=== PATIENT | male | born 1955 | race Asian ===

== ENCOUNTER 2020-09-26 14:25 | Outpatient (CLI) | payer MEDICARE, OTHER ==
[2020-09-26 14:43] LABS: BASOPHILS % (AUTO) 0.4 %; EOSINOPHILS # (AUTO) 0.2 10^3/uL (0.0-0.7); EOSINOPHILS % (AUTO) 3.7 %; HGB - HEMOGLOBIN 14.8 g/dL (14.0-18.0); LYMPHOCYTES # (AUTO) 2.6 10^3/uL (1.5-3.5); LYMPHOCYTES % (AUTO) 47.6 %; MEAN CORPUSCULAR HEMOGLOBIN 31.8 pg (27.0-31.0); MEAN CORPUSCULAR HGB CONC 35.2 g/dL (32.0-36.0); MEAN CORPUSCULAR VOLUME 90.1 fL (80.0-94.0); MEAN PLATELET VOLUME 8.8 fL (7.4-11.4); MONOCYTES # (AUTO) 0.4 10^3/uL (0.0-1.0); MONOCYTES % (AUTO) 8.1 %; NEUTROPHILS # (AUTO) 2.2 10^3/uL (1.5-6.6); PLT - PLATELET COUNT 161 10^3/uL (130-450); RED BLOOD COUNT 4.66 10^6/uL (4.70-6.10); RED CELL DISTRIBUTION WIDTH 11.9 % (12.0-15.0); WHITE BLOOD COUNT 5.4 x10^3/uL (4.8-10.8)
== END 2020-09-26 14:26 | disposition home or self-care (01) ==
LOC: LAB 14:25
PROVIDERS: ATTEND Family Medicine
DX: D69.6 Thrombocytopenia, unspecified (principal)
CPT/HCPCS: 36415; 85025

== ENCOUNTER 2021-04-16 07:12 | Day surgery (SDC) | payer MEDICARE, OTHER ==
[2021-04-16] MEDS ORDERED: LACTATED RINGERS 1,000 ML IV ONE ×2 (07:27→08:49)
[2021-04-16] MEDS ORDERED: BENZOCAINE/TETRACAINE/BUTAMBEN 20 GM ONE (08:03)
[2021-04-16] MEDS ORDERED: LIDO GARGLE 30 ML BOTTLE ONE (08:03)
[2021-04-16] MEDS ORDERED: MIDAZOLAM 2 MG/2 ML VIAL ONE (08:06)
[2021-04-16] MEDS ORDERED: fentaNYL 250 MCG/5 ML VIAL ONE (08:06)
[2021-04-16] MEDS ORDERED: LIDO GARGLE 30 ML BOTTLE PO ONE (08:14)
[2021-04-16] MEDS ORDERED: BENZOCAINE/TETRACAINE/BUTAMBEN 20 GM TOP ONE (08:15)
[2021-04-16 09:42] VITALS: BP 130/80
== END 2021-04-16 07:13 | disposition home or self-care (01) ==
LOC: SDS 07:12
PROVIDERS: ATTEND Surgery
PROC: 0DB28ZX Excision of Middle Esophagus, Via Natural or Artificial Opening Endoscopic, Diagnostic (ICD-10-PCS; 2021-04-16)
PROC: 0DB48ZX Excision of Esophagogastric Junction, Via Natural or Artificial Opening Endoscopic, Diagnostic (ICD-10-PCS; 2021-04-16)
PROC: 0DB98ZX Excision of Duodenum, Via Natural or Artificial Opening Endoscopic, Diagnostic (ICD-10-PCS; principal; 2021-04-16 08:15)
PROC: 0DB78ZX Excision of Stomach, Pylorus, Via Natural or Artificial Opening Endoscopic, Diagnostic (ICD-10-PCS; 2021-04-16 08:15)
DX: Z09 Encounter for follow-up examination after completed treatment for conditions other than malignant neoplasm (principal); Z86.010 Personal history of colon polyps; Z87.19 Personal history of other diseases of the digestive system; K57.30 Diverticulosis of large intestine without perforation or abscess without bleeding; K29.70 Gastritis, unspecified, without bleeding; K21.00 Gastro-esophageal reflux disease with esophagitis, without bleeding; E78.5 Hyperlipidemia, unspecified; Z79.82 Long term (current) use of aspirin; Z79.899 Other long term (current) drug therapy
CPT/HCPCS: 43239; 45378; A9270; J3010; J7120

== ENCOUNTER 2024-03-27 10:37 | Outpatient (CLI) | payer MEDICARE, OTHER ==
--- NOTE | 2024-03-27 12:49 | SLEEP CARE CONSULTATION ---
Information from patient questionnaire entered by Nico Hinson. I have reviewed and concur with the information entered by Nico Hinson. This document represents the service I personally performed and the decisions made by me, Thalia Adrian MD, [facility]. History of Present Illness Service Date and Time: 03/27/2024 1037 Reason for Visit: New patient Chief Complaint: reports: Other (DIFFICULTY FALLING ASLEEP) Date of Onset: 1.5YRS Usual bedtime: 2330 Time it takes to fall asleep: 30MIN WITH AMBIAN 5MG Snores at night: Yes Observed to quit breathing while asleep: No Sleeps alone due to snoring: No Number of times waking at night: 2 Reasons for waking at night: reports: Bathroom Toss, Turn, or Twitch while sleeping: No Recalls having dreams: Yes Usually gets out of bed at: [id number] Feels refreshed in the morning: Yes Morning headache: No Sleepy or fatigued during the day: No Ever fallen asleep while driving: No Takes day naps: No Dreams during day naps: No Prior sleep studies: No Additional HPI information: I had the pleasure of seeing Mr. Middleton today regarding the possibility of him having a sleep disorder. As you know, he is a 68-year-old gentleman who complains of difficulty falling asleep. For the past year and a half. The patient tells me that he normally goes to bed around 11:30 pm, and it takes him approximately 30 minutes to fall asleep with zolpidem 5 mg. He has been told that he snores loudly and irregularly at night. He has never been observed to stop breathing in his sleep. However, his sleeps in a separate bedroom. He can recall waking up on the average of 2 times during the night. Most of the time he wakes up because of having to use the bathroom. He has awakened occasionally because of his own snoring, choking, and having to gasp for air. There is not a lot of tossing and turning in his sleep. No somniloquy (sleep talking) or somnambulism (sleep walking). Generally, he can recall having dreams. In the morning he usually gets up out of the bed around 8 - 9 a.m. not feeling refreshed nor rested. He usually does not have a morning headache. During the day he complains of feeling fatigued but not particularly sleep. His score on [place] Sleepiness Scale is 4 out of 24. He never has fallen asleep while driving nor has had any accident due to sleepiness. He usually does not take naps during the day. Upon falling asleep during the day he denies having vivid dreams. He has never had sleep paralysis, experienced cataplexy or symptoms of restless leg syndrome. He denies having impaired concentration during the day. - Parasomnia Symptoms Ever been unable to move upon waking from sleep: No Walks in sleep: No Talks in sleep: No Ever acted out dreams in sleep: No Ever felt weak in the knees when startled or emotional: No Bothered by creepy, crawly, restless sensations in legs: No Problems with memory or concentration: No Subjective Initial [place] Sleepiness Scale score: 4 (03/13/24) Past Medical History Past Medical History: reports: Hypertension Social History The patient's occupation is a [employer]. Patient is and lives in [place]. Have you smoked in the past 12 months: No Alcohol use: No Caffeine use: Yes Caffeine amount and frequency: TEA DAILY Allergies and Home Medications Known drug allergies: Yes (PENICILLIN) Drug allergies reviewed: Yes Home medication list reviewed: Yes Allergy and home medication list: Allergies Penicillins Allergy (Verified 03/23/24 09:02) Rash Review of Systems Cardiovascular: reports: high blood pressure Respiratory: denies: shortness of breath, wheeze, sputum production, chronic cough, other Gastrointestinal: denies: heartburn, difficulty swallowing, nausea, vomitting, diarrhea, abdominal pain, other Urinary: denies: incontinence, frequency, urgency, impotence, other Neurological: denies: headaches, seizure, head trauma, disorientation, speech dysfunction, gait or balance problems, fainting or unconsciousness, other Psychiatric: denies: Attention Deficit Hyperactivity, anxiety, depression, mood disorder, claustrophobia, other Ear/Nose/Throat: reports: sinus problems Endocrine: denies: thyroid disease, history of goiter, sluggishness, too hot or cold, excessive thirst, increased appetite, increased urination, unexplained weakness, other Musculoskeletal: denies: joint pain, neck pain, back pain, joint swelling, muscle pain or cramping, mobility problems, other Immunologic: denies: sneezing, rash, itching, allergies to food or environment, other Physical Exam Vital signs obtained and entered by: NICO Llanos MA Blood Pressure: 135/76 (RGHT ARM) Cuff size: regular Heart Rate: 61 O2 Saturation: 99 Height: 5 ft 8.75 in Weight: 194 lb 9.6 oz Body Mass Index: 28.9 BMI Classification: Overweight Neck circumference: 16 Mood/affect: normal HEENT: No craniofacial malformation Nostrils: patent to airflow Turbinates: normal Septum: midline Mouth and throat: narrow oropharynx Soft palate: long Hard palate: normal Uvula: normal Uvula visualization: 50% Mallampati Class II Tongue: normal in size Tonsils: small Chin and jaw: Retrognathia Neck: normal w/o lymphadenopathy or thyromegaly Heart: regular rate and rhythm Lungs: clear bilaterally Extremities: no edema or clubbing Neurologic: intact Impression and Plan IMPRESSION: 1. Obstructive Sleep Apnea-Hypopnea Syndrome, as suggested by history of loud and irregular snoring, nocturnal choking, unrefreshed sleep, and history of hypertension. Narrow oropharynx and obesity are common predisposing factors for obstructive sleep apnea-hypopnea syndrome. I recommend proceeding to polysomnography to confirm the diagnosis and to assess severity. I informed the patient of what the sleep studies involve and after some discussion, he agreed to proceed. 2. Insomnia, due to excessive time spent in bed of 9.5 hours a night. The patient was advised to limit time spent in bed to 7 hours. If he gets up at 9 am, he should delay his bedtime to 2 am. He may continue to take zolpidem 5 mg for now. Plan: 1. Schedule and return in 1 to 2 weeks after the study to discuss result and initiate therapy. 2. Maintain a regular wake up time and spend no more than 7 hours in bed at night. Avoid naps. 3. Avoid alcohol, sedatives and muscle relaxants around bedtime. 4. Attempt to lose some weight. Follow up with Sleep Care in: 1-2 months Visit Type: In Office Time Spent with Patient (minutes): 15 Provider Statement: I spent 100% of the Face to Face Visit with the patient with greater than 50% spent counseling the patient and coordination of care.
[2024-03-27 12:55] VITALS: BP 135/76; O2SAT 99
== END 2024-03-27 10:38 | disposition home or self-care (01) ==
LOC: SC 10:37
PROVIDERS: ATTEND Internal Medicine Pulmonary Disease
DX: G47.8 Other sleep disorders (principal); R06.83 Snoring; Z86.79 Personal history of other diseases of the circulatory system; G47.00 Insomnia, unspecified; E66.3 Overweight; Z68.28 Body mass index [BMI] 28.0-28.9, adult
CPT/HCPCS: 99202; G0463; 99212

== ENCOUNTER 2024-03-28 19:43 | Outpatient (CLI) | payer MEDICARE, OTHER | END 2024-03-28 19:44 | disposition home or self-care (01) | LOC: SC 19:43 | PROVIDERS: ATTEND Internal Medicine Pulmonary Disease | DX: G47.33 Obstructive sleep apnea (adult) (pediatric) (principal); G47.61 Periodic limb movement disorder; I10 Essential (primary) hypertension; E66.3 Overweight; Z68.28 Body mass index [BMI] 28.0-28.9, adult | CPT/HCPCS: 95810 ==

== ENCOUNTER 2024-04-24 13:59 | Outpatient (CLI) | payer MEDICARE, OTHER ==
--- NOTE | 2024-04-24 19:37 | SLEEP CARE CONSULTATION ---
Information from patient questionnaire entered by Nico Hinson. I have reviewed and concur with the information entered by Nico Hinson. This document represents the service I personally performed and the decisions made by me, Thalia Adrian MD, [facility]. History of Present Illness Service Date and Time: 04/24/2024 4178 Current [place] Sleepiness Scale score: 8 (04/24/24) Additional HPI information: Mr. Middleton returned for follow up of the sleep study he had on 03/28/24. The polysomnography showed that the patient had reduced sleep efficiency due to frequent awakenings throughout the night. The sleep architecture was abnormal for sleep fragmentation and lack of slow wave sleep (N3). Respiratory monitoring showed severe obstructive sleep apnea-hypopnea (AHI = 49.6) associated with frequent arousals, oxyhemoglobin desaturation and moderate hypoxia (nafisa oxygen saturation of 74%). The respiratory events occurred more frequently during supine sleep (supine AHI = 67.0; non-supine = 25.71). Snore was moderate to loud in intensity. There was moderate periodic leg movement of sleep, not contributing to the sleep fragmentation. Cardiac rhythm was normal sinus rhythm without significant arrhythmia. No abnormal behavior (parasomnia) observed during the night. The patient was informed of these findings. I explained to him the pathophysiology behind obstructive sleep apnea. We then spent quite a bit of time discussing different treatment options. For mild obstructive sleep apnea, surgery and oral appliance are alternatives to nasal CPAP therapy but in moderate or severe cases, nasal CPAP is the most effective and reliable treatment. Weight loss in an obese individual is strongly recommended. After some discussion, he opted to go with the nasal CPAP therapy. I explained to him how CPAP machine works and what to expect when using the machine. He is encouraged to use CPAP every night especially in the first 2 to 3 nights in order to get used to it. He should call his CPAP supplier or me to discuss any mechanical problem that may occur. If he snores or feels like he is not getting enough air from the machine, he should notify me and I will increase the pressure. Sleep Study - Results Type of Sleep Study: Polysomnography (COMPLETED 03/28/24) Allergies and Home Medications Drug allergies reviewed: Yes Home medication list reviewed: Yes Allergy and home medication list: Allergies Penicillins Allergy (Verified 04/24/24 14:00) Rash Review of Systems Review of systems same as previous: Yes (NO CHANGE) Physical Exam Vital signs obtained and entered by: NICO Llanos MA Blood Pressure: 132/79 (LEFT ARM) Cuff size: regular Heart Rate: 70 O2 Saturation: 98 Height: 5 ft 10 in Weight: 200 lb Body Mass Index: 28.7 BMI Classification: Overweight Impression and Plan IMPRESSION: 1. Obstructive Sleep Apnea-Hypopnea Syndrome, severe, associated with moderate hypoxemia and sleep fragmentation. Obviously this is the cause of the patients symptoms of frequent awakenings, unrefreshed sleep, and excessive daytime sleepiness. As mentioned above, the patient will be started on an auto CPAP set between 5 and 15 cmH2O. A manual CPAP/BiPAP titration study will be ordered. PLAN: 1. Prescription made for an autoCPAP, heated humidifier, and related supplies through [facility] in [facility]. 2. Schedule a manual CPAP/BiPAP titration study. 3. Refill zolpidem 5 mg. 4. Return for a follow up after the titration study. Prescriptions: Auto CPAP Follow up with Sleep Care in: 1-2 months Plan: manual CPAP titration Visit Type: In Office Time Spent with Patient (minutes): 25 Provider Statement: I spent 100% of the Face to Face Visit with the patient with greater than 50% spent counseling the patient and coordination of care.
[2024-04-24 19:46] VITALS: BP 132/79; O2SAT 98
== END 2024-04-24 14:00 | disposition home or self-care (01) ==
LOC: SC 13:59
PROVIDERS: ATTEND Internal Medicine Pulmonary Disease
DX: G47.33 Obstructive sleep apnea (adult) (pediatric) (principal); R09.02 Hypoxemia
CPT/HCPCS: 99212; G0463